=== PATIENT | female | born 1990 | race Caucasian/White ===

== ENCOUNTER 2019-10-27 21:13 | Inpatient (IN) | payer BC, SELFPAY ==
[2019-10-27] VITALS (7 sets, daily range): BP systolic 98–148; BP diastolic 68–104; PULSE 87–95; RESP 16; TEMP 36.9; O2SAT 85–100; BMI 65.8
--- NOTE | 2019-10-27 21:22 | PC.NURSE ---
pt was weaned off Non rebreather to 2l NC . tolerated well.
--- NOTE | 2019-10-27 21:46 | PC.NURSE ---
pt was weaned down to Room air. tolerated well.
--- NOTE | 2019-10-27 21:47 | ECG_ITS ---
APPROVED REPORT Exam: Resting ECG HR:105 bpm ECG Measurements Heart Rate 105 AXES NC 136 P 15 QRSd 88 QRS 19 QT 334 T 41 QTc 441 <Conclusion> Poor data quality, interpretation may be adversely affected Sinus tachycardia with premature supraventricular complexes with occasional premature ventricular complexes Anterior infarct, age undetermined Abnormal ECG Electronically signed by : Kwaku Barron, 10/29/2019 14:14:59
--- NOTE | 2019-10-27 21:47 | XR_ITS ---
PROCEDURE: XR CHEST AP CLINICAL HISTORY: allergic reaction Vomiting and diarrhea COMPARISON: No exams were available for comparison FINDINGS: The cardiomediastinal silhouette and pulmonary vascularity are within normal limits. The lungs are clear without infiltrates, suspicious nodules, or pleural effusions. No acute bony abnormalities. IMPRESSION: No acute findings. Dictated by: Zac Lacy MD 10/27/2019 23:20 Electronically signed by Zac Lacy MD in [place] 10/27/2019 23:20
--- NOTE | 2019-10-27 21:49 | CT_ITS ---
PROCEDURE: CT ABDOMEN PELVIS W CON CLINICAL INDICATION: vomiting/ diarrhea Nausea, vomiting, diarrhea COMPARISON: No exams were available for comparison TECHNIQUE: IV Contrast: 75ML OPTIRAY 350 Oral Contrast none Axial images obtained with sagittal and coronal reformats. All CT scans at the facility use one or more dose reduction, viz: automated exposure control, ma/kV adjustment per patient size (including targeted exams where dose is matched to indication, i.e. head), or iterative reconstruction technique. FINDINGS: LOWER THORAX: No acute finding ABDOMEN & PELVIS: The liver, gallbladder, adrenal glands, pancreas, and kidneys have an unremarkable appearance. There is mild splenomegaly at 15 cm. There are few small retroperitoneal lymph nodes. No dominant adenopathy. No evidence of appendicitis or diverticulitis. No pelvic mass or abnormal fluid collection. There is a Rodríguez catheter present in the urinary bladder. There is submucosal fat deposition within the colon. This may be seen as sequela from prior infectious/inflammatory process or increased body fat content. No acute bony findings. IMPRESSION: No acute abdominal or pelvic findings. Mild splenomegaly Dictated by: Zac Lacy MD 10/28/2019 08:47 Electronically signed by Zac Lacy MD in [place] 10/28/2019 08:47
[2019-10-27 21:55] LABS: Adenovirus F 40/41, stool Not Detected (NotDetected); Astrovirus Not Detected (NotDetected); Campylobacter Not Detected (NotDetected); Clostridium Difficile A/B, PCR Not Detected (NotDetected); Cryptosporidium Not Detected (NotDetected); Cyclospora Cayetanesis Not Detected (NotDetected); Entamoeba histolytica Not Detected (NotDetected); Enteroaggregative E coli Not Detected (NotDetected); Enteropathogenic E coli Not Detected (NotDetected); Enterotoxigenic E coli Not Detected (NotDetected); Giardia lamblia Not Detected (NotDetected); Norovirus Not Detected (NotDetected); Plesimonas Shigalloides, PCR Not Detected (NotDetected); Rotavirus A Not Detected (NotDetected); Salmonella, PCR Not Detected (NotDetected); Sapovirus Not Detected (NotDetected); Shiga-like toxin E coli Not Detected (NotDetected); Shigella Enterovasive E coli Not Detected (NotDetected); Vibrio Cholerae Not Detected (NotDetected); Vibrio, PCR Not Detected (NotDetected); Yersinia Entercolitica, PCR Not Detected (NotDetected)
[2019-10-27 21:55] LABS: Microscopic, Urine URINE MICROSCOPIC (MICROSCOPIC)
[2019-10-27 21:56] LABS: Basophils # 0.1 K/mm3 (0-0.2); Basophils % 0.5 % (0.1-2.0); Eosinophils # 0.1 K/mm3 (0.0-0.4); Eosinophils % 0.7 % (0.1-12.0); Hematocrit 35.7 % (37.0-47.0); Hemoglobin 11.7 g/dL (12.2-16.2); Lymphocytes # 5.2 K/mm3 (0.7-4.5); Lymphocytes % 28.1 % (10-50); Mean Corpuscular HGB Conc 32.8 g/dL (31.8-35.4); Mean Corpuscular Hemoglobin 26.9 pg (27.0-31.2); Mean Corpuscular Volume 82.1 fl (81-99); Mean Platelet Volume 7.4 fl (7.4-10.4); Monocytes # 0.7 K/mm3 (0.1-1.0); Monocytes % 3.5 % (1.7-9.3); Neutrophils # 12.4 K/mm3 (1.8-7.8); Neutrophils % 67.2 % (37.0-80.0); Platelet Count 575 K/mm3 (142-424); Red Blood Count 4.34 M/mm3 (4.20-5.40); Red Cell Distribution Width 15.2 % (11.5-17.5); White Blood Count 18.5 K/mm3 (4.8-10.8)
[2019-10-27 21:57] LABS: Appearance,Urine CLEAR (Clear); Bilirubin,Urine Negative (Negative); Blood, Urine Negative (Negative); Color,Urine YELLOW (Yellow); Glucose,Urine (UA) Negative (Negative); Ketones,Urine Negative (Negative); Leukocyte Esterase,Urine Negative (Negative); Nitrate,Urine Negative (Negative); Protein,Urine 1+ (Negative); Specific Gravity, Urine >= 1.030 (1.005-1.030); Urobilinogen,Urine 0.2 EU/dl (0.2)
[2019-10-27 21:58] LABS: Chloride 124 mmol/L (98-107)
[2019-10-27 21:59] LABS: Urine Pregnancy, HCG Qual. Negative (Negative)
[2019-10-27 21:59] LABS: MANUAL DIFFERENTIAL MANUAL DIFFERENTIAL (MANUAL DIFF); Sodium 145 mmol/L (136-145)
[2019-10-27 22:00] LABS: Lipase 28 U/L (23-300)
[2019-10-27 22:01] LABS: Alanine Aminotransferase 14 U/L (12-78); Aspartate Amino Transferase 22 U/L (14-36); Blood Urea Nitrogen 8 mg/dl (7-17); Creatinine Clearance Estimated 130 mL/min (50-200); Estimated Glomerular Filt Rate 145 ml/min (>60); GFR (African American) 175 ML/MIN (>60)
[2019-10-27 22:02] LABS: Albumin Level 1.8 g/dl (3.5-5.0); Albumin/Globulin Ratio 0.8 (1.1-1.8); Alkaline Phosphatase 54 U/L (38-126); Bilirubin,Total 0.2 mg/dl (0.2-1.3); Carbon Dioxide 12 mmol/L (22.0-30.0); Globulin 2.3 g/dL (1.3-3.2); Glucose 111 mg/dl (74-100); Total Protein,Serum 4.1 g/dl (6.3-8.2)
[2019-10-27 22:03] LABS: Bacteria,Urine Trace /lpf
--- NOTE | 2019-10-27 22:03 | PC.NURSE ---
pt placed on a bedside commode after stating she wasn't comfortable using the bathroom in bed anymore. pt was able to stand up and pivot to the BSC with stand by assist.
[2019-10-27 22:09] LABS: Benzodiazepines Screen,Urine Negative ng/ml (<200)
[2019-10-27 22:09] LABS: Lactic Acid 3.7 mmol/L (0.7-2.1)
[2019-10-27 22:10] LABS: Amphetamine/Metha Screen,Urine Negative ng/ml (<1000); Barbiturates Screen,Urine Negative ng/ml (<200)
[2019-10-27 22:11] LABS: Cannabinoid Screen,Urine Negative ng/ml (<50); Cocaine Screen,Urine Negative ng/ml (<300)
[2019-10-27 22:12] LABS: Methadone Screen,Urine Negative ng/ml (<300)
[2019-10-27 22:13] LABS: Opiate Screen,Urine Negative ng/ml (<300); Phencyclidine Screen,Urine Negative ng/ml (<25)
--- NOTE | 2019-10-27 22:13 | PC.NURSE ---
Pt arrived via EMS. on arrival pt was 100 on a non-rebreather mask with 15L 100% O2. per report ems was unable to assess a BP with their monitor, pt was alert and oriented x3 throughout their interaction and pt has been incontinent with her bowels in transport. This nurse and Bibi Jefferson assessed pt. pt was 85% on room air on initial assessment. pt place back on non-reabreather at this time. pt was cleaned up from BM. Rodríguez Catheter was placed and urine was collected and sent to lab.
[2019-10-27 22:27] LABS: Amylase < 30 U/L (30-110); Troponin I < 0.01 ng/ml (0.00-0.034)
[2019-10-27 22:49] LABS: Eosinophils % 2 % (0-3); Lymphocytes % 32 % (10-50); Monocytes % 2 % (2-9); Neutrophils % 64 % (42-76); Total Cells Counted 100
[2019-10-27 22:50] LABS: Platelet Estimate Normal; RBC Morphology Normal
--- NOTE | 2019-10-27 22:54 | HMH.EDALLER ---
ED Disposition Clinical Impression: Hypokalemia, Hypocalcemia, Hypomagnesemia, Elevated troponin Allergic reaction Qualifiers: Encounter type: initial encounter Qualified Code(s): T78.40XA - Allergy, unspecified, initial encounter Obesity Qualifiers: Obesity type: due to excess calories Obesity classification: adult class 3 (BMI >= 40) Serious obesity comorbidity presence: with serious comorbidity Body mass index: BMI 60.0-69.9 Qualified Code(s): E66.01 - Morbid (severe) obesity due to excess calories; Z68.44 - Body mass index (BMI) 60.0-69.9, adult Disposition: Admitted as Observation Condition on Discharge: Fair - Critical Care Critical Care Time: No Attestation: On 10/27/19, the high probability of a clinically significant, sudden or life threatening deterioration of the following system(s) required my full and direct attention, intervention and personal management. The time I documented below is in addition to time spent performing reported procedures but includes the following listed in this critical care notation. Medical Decision Making - Medical Records Medical records reviewed: Yes: I reviewed the patient's medical records. - Ugo Inquiry Pt receiving controlled substance: No Vital Signs: 10/27/19 21:12 10/27/19 21:13 10/27/19 21:21 Temperature 98.5 F Temperature Source Rectal Pulse Rate [Left Radial] 90 Respiratory Rate 16 Blood Pressure [Right Arm] 98/68 L Blood Pressure Mean [Right Arm] 78 Blood Pressure Source [Right Arm] Automatic Cuff Blood Pressure Position [Right Arm] Sitting 02 Sat by Pulse Oximetry 85 L 100 98 Oxygen Delivery Method Room Air Non-Rebreather Nasal Cannula Oxygen Flow Rate (LPM) 2 10/27/19 21:46 10/27/19 22:16 10/27/19 23:00 Temperature Temperature Source Pulse Rate [Left Radial] 95 H 91 H 90 Respiratory Rate 16 16 Blood Pressure [Right Arm] 140/104 H 130/74 137/74 Blood Pressure Mean [Right Arm] 116 92 95 Blood Pressure Source [Right Arm] Automatic Cuff Automatic Cuff Blood Pressure Position [Right Arm] Sitting Sitting Sitting 02 Sat by Pulse Oximetry 94 L 95 94 L Oxygen Delivery Method Room Air Room Air Room Air Oxygen Flow Rate (LPM) 10/27/19 23:30 10/28/19 00:00 Temperature Temperature Source Pulse Rate [Left Radial] 87 81 Respiratory Rate 16 16 Blood Pressure [Right Arm] 148/89 H 119/68 Blood Pressure Mean [Right Arm] 108 85 Blood Pressure Source [Right Arm] Automatic Cuff Automatic Cuff Blood Pressure Position [Right Arm] Sitting Sitting 02 Sat by Pulse Oximetry 95 96 Oxygen Delivery Method Room Air Room Air Oxygen Flow Rate (LPM) - Lab Data Lab results reviewed: Yes: I reviewed the patient's lab results. Lab Results 10/27/19 21:15: WBC 18.5 H, RBC 4.34, Hgb 11.7 L, Hct 35.7 L, MCV 82.1, MCH 26.9 L, MCHC 32.8, RDW 15.2, Plt Count 575 H, MPV 7.4, Neut % (Auto) 67.2, Lymph % (Auto) 28.1, [place] % (Auto) 3.5, Eos % (Auto) 0.7, Baso % (Auto) 0.5, Neut # (Auto) 12.4 H, Lymph # (Auto) 5.2 H, [place] # (Auto) 0.7, Eos # (Auto) 0.1, Baso # (Auto) 0.1, Total Counted 100, Neutrophils % (Manual) 64, Lymphocytes % (Manual) 32, Monocytes % (Manual) 2, Eosinophils % (Manual) 2, Platelet Estimate Normal, RBC Morphology Normal 10/27/19 21:15: Sodium 145, Potassium 2.0 L*, Chloride 124 H, Carbon Dioxide 12 L, Anion Gap 11.0, BUN 8, Creatinine 0.50 L, Estimated Creat Clear 130, Estimated GFR 145, Est GFR ( Amer) 175, Glucose 111 H, Calcium 5.0 L*, Total Bilirubin 0.2, AST 22, ALT 14, Alkaline Phosphatase 54, Troponin I < 0.01, Total Protein 4.1 L, Albumin 1.8 L, Globulin 2.3, Albumin/Globulin Ratio 0.8 L, Amylase < 30 L 10/27/19 21:15: Lactate 3.7 H 10/27/19 21:15: Lipase 28 10/27/19 21:35: Urine Color Yellow, Urine Appearance Clear, Urine pH 6.0, Ur Specific [place] >= 1.030, Urine Protein 1+, Urine Glucose (UA) Negative, Urine Ketones Negative, Urine Blood Negative, Urine Nitrate Negative, Urine Bilirubin Negative, Urine Urobilinogen 0.
--- NOTE | 2019-10-27 23:41 | PC.NURSE ---
pt alert and oriented x 3 and sitting up in bed.
[2019-10-28] VITALS (8 sets, daily range): BP systolic 113–141; BP diastolic 61–79; PULSE 61–85; RESP 15–20; TEMP 36.6–36.8; O2SAT 91–98; BMI 58.7; BMI 58.6
--- NOTE | 2019-10-28 00:01 | PC.NURSE ---
pt resting with eyes closed
--- NOTE | 2019-10-28 00:17 | PC.NURSE ---
spoke with bernard from pharmacy for calcium and potassium dosing. He recommended : 2gm of calcium gluconate and 3 runs of 10meq of potassium an hour then recheck the pot. level and continue to give more runs if needed.
[2019-10-28 01:03] LABS: Magnesium 1.1 mg/dl (1.6-2.3)
[2019-10-28 01:08] LABS: Reflex Lactic Add Lactic Reflex
[2019-10-28 01:19] LABS: Lactic Acid Follow Up (RFLX 1) 1.8 mmol/L (0.7-2.1)
[2019-10-28 01:21] LABS: T4 (Thyroxine) 4.8 ug/dl (5.53-11.0)
[2019-10-28 01:35] LABS: Thyroid Stimulating Hormone 1.42 uIU/mL (0.465-4.68)
[2019-10-28 01:41] LABS: Coronavirus 19 IgG Antibody Negative (Negative); Coronavirus 19 IgM Antibody Negative (Negative)
--- NOTE | 2019-10-28 01:51 | PC.NURSE ---
report called to CALEB Bolaños
--- NOTE | 2019-10-28 04:15 | PC.NURSE ---
PT IS A&OX4. LUNGS ARE CLEAR THROUGHOUT. 95% ON ROOM AIR. BS HYPERACTIVE IN ALL QUADS. PT REPORTS NO PAIN. NSR RHYTHM ON HEART MONITOR. PT RESTING COMFORTABLY. CARRILLO CATHETER DRAINING YELLOW CLEAR URINE. PT HAS A LARGE HEALING BURN ON ABD, PT STATES SHE BURNED IT ON STOVE WHILE COOKING. NO EDEMA NOTED IN EXTREMITIES KCL INFUSING @ 50MLS/HR. NS @ 100MLS/HR. PT AT THIS TIME HAS HAD NO MORE EPISODES OF VOMITING OR DIARRHEA WILL CONTINUE TO MONITOR
[2019-10-28 04:25] LABS: Chloride 110 mmol/L (98-107)
[2019-10-28 04:26] LABS: Basophils % 0.1 % (0.1-2.0); Eosinophils # 0.1 K/mm3 (0.0-0.4); Eosinophils % 0.4 % (0.1-12.0); Hematocrit 38.9 % (37.0-47.0); Hemoglobin 12.7 g/dL (12.2-16.2); Lymphocytes # 1.8 K/mm3 (0.7-4.5); Lymphocytes % 8.5 % (10-50); Mean Corpuscular HGB Conc 32.6 g/dL (31.8-35.4); Mean Corpuscular Hemoglobin 26.9 pg (27.0-31.2); Mean Corpuscular Volume 82.3 fl (81-99); Mean Platelet Volume 7.3 fl (7.4-10.4); Monocytes # 0.2 K/mm3 (0.1-1.0); Monocytes % 1.1 % (1.7-9.3); Neutrophils % 89.9 % (37.0-80.0); Platelet Count 441 K/mm3 (142-424); Potassium 4.3 mmoL/L (3.5-5.1); Red Blood Count 4.73 M/mm3 (4.20-5.40); Red Cell Distribution Width 15.3 % (11.5-17.5); Sodium 139 mmol/L (136-145); White Blood Count 21.1 K/mm3 (4.8-10.8)
[2019-10-28 04:28] LABS: Blood Urea Nitrogen 12 mg/dl (7-17); Creatinine Clearance Estimated 89 mL/min (50-200); Estimated Glomerular Filt Rate 98 ml/min (>60); GFR (African American) 119 ML/MIN (>60)
[2019-10-28 04:29] LABS: Anion Gap 10.3 mEq/L (5-15); Carbon Dioxide 23 mmol/L (22.0-30.0); Chol/HDL Ratio 6.6 (1-3.5); Cholesterol 204 mg/dl (140-200); Glucose 160 mg/dl (74-100); HDL Cholesterol 31 mg/dl (40-60); Phosphorous 3.3 mg/dl (2.5-4.5); Triglycerides 222 mg/dl (30-150); VLDL Cholesterol 44 mg/dL (0-40)
[2019-10-28 04:40] LABS: Direct LDL Cholesterol 139.49 mg/dL (100-129)
[2019-10-28 04:41] LABS: Troponin I 0.11 ng/ml (0.00-0.034)
[2019-10-28 05:11] LABS: Calcium 8.9 mg/dl (8.4-10.2)
--- NOTE | 2019-10-28 05:41 | PC.NURSE ---
PATIENT WEIGHED ON STANDING SCALE IN HALLWAY . NO NUMBER ON SCALE TO CHART
--- NOTE | 2019-10-28 07:34 | HMH.PHAINT ---
MED REC- PATIENT TAKES NO HOME MEDICATIONS -AMANDA LINARESD
--- NOTE | 2019-10-28 07:34 | HMH.PHAVTE ---
[facility] Pharmacy VTE Monitoring - Patient Demographics Admission date: 10/27/19 Report Date: 10/28/19 Time: 07:34 Allergies/Adverse Reactions: Patient Allergies amoxicillin [AMOXICILLIN] Allergy (Intermediate, Verified 10/27/19 21:56) I-HIVES latex Allergy (Intermediate, Verified 10/28/19 03:58) Hives penicillin G [PENICILLIN G] Allergy (Intermediate, Verified 10/27/19 21:56) I-HIVES Sulfa (Sulfonamide Antibiotics) [SULFA (SULFONAMIDE ANTIBIOTICS)] Allergy (Intermediate, Verified 10/27/19 21:56) I-HIVES Height: 1.57 m Weight: 144.412 kg Patient Problems: Current Active Problems Allergic reaction (Acute) Obesity (Acute) Hypokalemia (Acute) Hypocalcemia (Acute) Hypomagnesemia (Acute) Elevated troponin (Acute) - VTE Risk Labs: VTE Related Lab Results Hgb 12.7 g/dL (12.2-16.2) 10/28/19 04:15 Hct 38.9 % (37.0-47.0) 10/28/19 04:15 Plt Count 441 K/mm3 (142-424) H 10/28/19 04:15 BUN 12 mg/dl (7-17) D 10/28/19 04:15 Creatinine 0.70 mg/dl (0.52-1.04) D 10/28/19 04:15 Estimated Creat Clear 89 mL/min (50-200) 10/28/19 04:15 VTE Score: 1 - Prophylaxis VTE Prophylaxis Ordered?: Yes Types of VTE Prophylaxis: TEDS Knee High Location of Applied Device: Bilateral Lower Extremeties - VTE Diagnosis Confirmed Treatment or plan recommended: Continue Current Treatment
--- NOTE | 2019-10-28 07:45 | ECG_ITS ---
APPROVED REPORT Exam: Resting ECG HR:68 bpm ECG Measurements Heart Rate 68 AXES WA 170 P 32 QRSd 104 QRS 39 QT 416 T 41 QTc 442 <Conclusion> Normal sinus rhythm with sinus arrhythmia Incomplete RBBB Otherwise a normal ECG Electronically signed by : Partha Contreras, 10/28/2019 17:12:13
--- NOTE | 2019-10-28 07:51 | HMH.CNCARD ---
History of Present Illness Consult date: 10/28/19 Requesting physician: Scott Cruz Chief complaint: weakness, vomiting, incontinence, elevated troponin Additional Medical History:: 1. Tobacco use, 1 pack/day since age 14 2. Obesity 3. Degenerative disc disease 4. Chronic knee discomfort due to history of trauma 5. Family history of diabetes and coronary artery disease 6. History of ADD 7. History of manic depression 8. Systemic inflammatory response syndrome, 10/2019 A. Mild elevation of troponins with preliminary echocardiogram showing normal ejection fraction without pericardial effusion. 9. Reported allergy to penicillin, sulfa, latex and amoxicillin with history of hives as the reaction History of present illness: 29-year-old white female reports eating [place] food approximately 30 minutes prior to onset of severe flushing sensation along with weakness, lightheadedness, abdominal pain, loss of bowel control and inability to walk. Friends were able to help the patient until patient could be transported to the emergency room for further evaluation. ER evaluation showed elevated white count with hypokalemia and hypocalcemia. Chest x-ray showed no acute findings, abdominal CT results are pending, EKG showed sinus tachycardia with acute ST segment changes. There was evidence of a poor R wave progression anteriorly but no acute ST segment changes. Initial troponin was normal with follow-up troponins mildly elevated at 0.1 and 0.11. Preliminary echocardiogram this morning shows preserved ejection fraction with no significant valve disease and no evidence of pericardial effusion. [facility] History Medical History: Reports:: MRSA (left arm abscess) Denies:: Cancer, Diabetes Mellitus Type 1, Diabetes Mellitus Type 2 *Have you ever received a pneumonia vaccine?: No *Have you received a flu vaccine this season?: Yes - *Social History Educational Level: Attended [employer] Smoking Status: Current every day smoker # Packs/Day (cigarettes): 1 Alcohol Intake: current Alcohol Intake Frequency:: holidays/special occasions only Substance Use Type: marijuana Last Used Substance: unknown *Occupational Status:: unemployed Household Members: spouse, friend(s) *Travel in the last 8 weeks: None Family Hx:: Asthma, Diabetes, Heart Attack, Hyperlipidemia, Hypertension Meds Home Medications Medication Instructions Recorded Confirmed Type No Known Home Medications 10/27/19 10/27/19 History Allergies Allergy/AdvReac Type Severity Reaction Status Date / Time amoxicillin [AMOXICILLIN] Allergy Intermediate I-HIVES Verified 10/27/19 21:56 latex Allergy Intermediate Hives Verified 10/28/19 03:58 penicillin G [PENICILLIN G] Allergy Intermediate I-HIVES Verified 10/27/19 21:56 Sulfa (Sulfonamide Allergy Intermediate I-HIVES Verified 10/27/19 21:56 Antibiotics) [SULFA (SULFONAMIDE ANTIBIOTICS)] Review of Systems - Review of Systems Review of systems:: pertinent systems reviewed and negative unless documented below - *Cardiovascular Reports shortness of breath with activity, Denies chest pain - *Respiratory Denies cough, Denies shortness of breath - *Gastrointestinal Reports incontinent of stools, Reports nausea, Reports vomiting - *Genitourinary Denies blood in urine - *Musculoskeletal Reports joint pain, Reports back pain - *Neurologic Denies seizure-like activity, Denies headache(s), Denies seizure-like activity Exam Vital signs and Labs for Last 24 Hours: Temp Pulse Resp BP Pulse Ox 97.9 F 82 18 139/78 93 L 10/28/19 04:00 10/28/19 04:00 10/28/19 04:00 10/28/19 04:00 10/28/19 04:00 Laboratory Results - last 24 hr 10/27/19 21:15: WBC 18.5 H, RBC 4.34, Hgb 11.7 L, Hct 35.7 L, MCV 82.1, MCH 26.9 L, MCHC 32.8, RDW 15.2, Plt Count 575 H, MPV 7.4, Neut % (Auto) 67.2, Lymph % (Auto) 28.1, [place] % (Auto) 3.5, Eos % (Auto) 0.7, Baso % (Auto) 0.5, Neut # (Auto) 12.4 H, Lymph # (Auto)
--- NOTE | 2019-10-28 08:00 | CA_ITS ---
APPROVED REPORT EXAM: Comprehensive 2D, Doppler, and color-flow Echocardiogram Power Saw Mechanic: Yodit Ramos RDCS Ht: 5 ft 2 in Wt: 360lbs BSA: 2.45 BP: 130/74 mmHg Indications: MURMUR 2D Dimensions LVOT 1.79 cm (M/F) 1.5-2.5 M-Mode Dimensions RVDd 2.25 cm (0.9-2.6) LVDd 5.91 cm (3.5-5.7) LVDs 4.18 cm (3.5-5.7) IVSd 1.00 cm (0.6-1.1) PWd 0.68 cm (0.6-1.1) EF (Teich) 55.30% FS 29.30% EDV (Teich) 173.90 mL ESV (Teich) 77.70 mL LV Diastology E/A Ratio 1.45 Aortic Valve LVOT Max 109.00 (70-110 cm/s) LVOT VTI 23.82 cm Mitral Valve MV A Velocity 56.00 (40-130 cm/s) Left Ventricle Left atrium is normal size, left ventricle is normal size, there is no concentric left ventricular hypertrophy, visually estimated ejection fraction 55% with no regional wall motion abnormality. Diastolic parameters are within normal range. Right Ventricle Right atrium and left ventricle are normal size and contractility. Aortic Valve Aortic valve is grossly normal, there is no aortic stenosis or aortic insufficiency. Mitral Valve Mitral valve has mild mitral annular calcification involving the posterior mitral leaflet, there is mild redundancy of the posterior mitral leaflet seen, there is no mitral stenosis or mitral regurgitation. Tricuspid Valve Tricuspid valve is grossly normal, there is trace tricuspid regurgitation. Pulmonic Valve Pulmonic valve is poorly visualized. Great Vessels Aortic root is normal size. Pericardium No significant pericardial effusion noted. Conclusion 1. Normal left ventricular size, preserved left ventricular systolic function, visually estimated ejection fraction 55% with no regional wall motion abnormality, diastolic parameters are within normal range. 2. Mild mitral annular calcification involving the posterior mitral leaflet, there is no mitral stenosis or mitral regurgitation. 3. No significant pericardial effusion noted. Electronically signed by : Liam Isaac, 10/28/2019 09:55:08
--- NOTE | 2019-10-28 08:32 | HMH.HPDC ---
General - General Admission date:: 10/28/19 Discharge date: 10/28/19 *Admission Date: 10/27/19 *Chief complaint: allergic reaction *History of present illness: 29-year-old female reports eating [place] food approximately 30 minutes prior to onset of severe flushing sensation along with weakness, lightheadedness, abdominal pain, loss of bowel control and inability to walk. Friends were able to help the patient until patient could be transported to the emergency room for further evaluation. ER evaluation showed elevated white count with hypokalemia and hypocalcemia. Chest x-ray showed no acute findings, abdominal CT results are pending, EKG showed sinus tachycardia with acute ST segment changes. There was evidence of a poor R wave progression anteriorly but no acute ST segment changes. Initial troponin was normal with follow-up troponins mildly elevated at 0.1 and 0.11. Preliminary echocardiogram this morning shows preserved ejection fraction with no significant valve disease and no evidence of pericardial effusion.-per [facility] History I have reviewed the patient's past medical history: Yes Medical History: Reports:: MRSA (left arm abscess) Denies:: Cancer, Diabetes Mellitus Type 1, Diabetes Mellitus Type 2 *Have you ever received a pneumonia vaccine?: No *Have you received a flu vaccine this season?: Yes - *Social History Educational Level: Attended [employer] Smoking Status: Current every day smoker # Packs/Day (cigarettes): 1 Alcohol Intake: current Alcohol Intake Frequency:: holidays/special occasions only Substance Use Type: marijuana Last Used Substance: unknown *Occupational Status:: unemployed Household Members: spouse, friend(s) *Travel in the last 8 weeks: None Family Hx:: Asthma, Diabetes, Heart Attack, Hyperlipidemia, Hypertension Review of Systems - Review of Systems Review of systems:: pertinent systems reviewed and negative unless documented below - Constitutional Reports weakness, Denies fever(s) - Eyes Denies pain - ENT Reports throat swelling, Denies sore throat - *Cardiovascular Denies chest pain at rest - *Respiratory Reports shortness of breath, Denies chest congestion - *Gastrointestinal Reports nausea, Reports vomiting, Denies bloating - *Genitourinary Denies urinary urgency - *Musculoskeletal Denies body aches - Integumentary/Breasts Denies rash - *Neurologic Reports weakness, Denies seizure-like activity, Denies headache(s), Denies seizure-like activity - Psychiatric Denies anxiety - Endocrine Denies increased urination - Hematologic/Lymphatic Denies easy bruising - Allergic/Immunologic Reports GI upset with certain foods, Reports throat swelling, Reports hives Exam Vital signs and Labs for Last 24 Hours: Temp Pulse Resp BP Pulse Ox 97.8 F 68 18 141/79 H 91 L 10/28/19 08:00 10/28/19 08:00 10/28/19 08:00 10/28/19 08:00 10/28/19 08:00 Laboratory Results - last 24 hr 10/27/19 21:15: WBC 18.5 H, RBC 4.34, Hgb 11.7 L, Hct 35.7 L, MCV 82.1, MCH 26.9 L, MCHC 32.8, RDW 15.2, Plt Count 575 H, MPV 7.4, Neut % (Auto) 67.2, Lymph % (Auto) 28.1, [place] % (Auto) 3.5, Eos % (Auto) 0.7, Baso % (Auto) 0.5, Neut # (Auto) 12.4 H, Lymph # (Auto) 5.2 H, [place] # (Auto) 0.7, Eos # (Auto) 0.1, Baso # (Auto) 0.1, Total Counted 100, Neutrophils % (Manual) 64, Lymphocytes % (Manual) 32, Monocytes % (Manual) 2, Eosinophils % (Manual) 2, Platelet Estimate Normal, RBC Morphology Normal 10/27/19 21:15: Sodium 145, Potassium 2.0 L*, Chloride 124 H, Carbon Dioxide 12 L, Anion Gap 11.0, BUN 8, Creatinine 0.50 L, Estimated Creat Clear 130, Estimated GFR 145, Est GFR ( Amer) 175, Glucose 111 H, Calcium 5.0 L*, Total Bilirubin 0.2, AST 22, ALT 14, Alkaline Phosphatase 54, Troponin I < 0.01, Total Protein 4.1 L, Albumin 1.8 L, Globulin 2.3, Albumin/Globulin Ratio 0.8 L, Amylase < 30 L 10/27/19 21:15: Lactate 3.7 H 10/27/19 21:15: Lipase 28 10/27/19 21:35: Urine Color Yellow, U
[2019-11-23 14:47] LABS: POC Glucose,Bedside 141 (70-110)
== END 2019-10-28 10:45 | disposition home or self-care (01) | DRG 916 ==
LOC: ER 22:23 → 2ND 10-28 01:40
PROVIDERS: Admitting Provider Emergency Medicine; Emergency Provider Emergency Medicine; PCP Internal Medicine Adolescent Medicine; Visit Provider Emergency Medicine
DX: T78.40XA Allergy, unspecified, initial encounter (principal); R65.10 Systemic inflammatory response syndrome (SIRS) of non-infectious origin without acute organ dysfunction; Z68.43 Body mass index [BMI] 50.0-59.9, adult; E83.51 Hypocalcemia; E87.6 Hypokalemia; E83.42 Hypomagnesemia; Z72.0 Tobacco use; E66.01 Morbid (severe) obesity due to excess calories
CPT/HCPCS: 36415; 71045; 74177; 80048; 80053; 80061; 80305; 81001; 81025; 82150; 82962; 83605; 83690; 83735; 84100; 84436; 84443; 84484; 85007; 85025; 86328; 87040; 87507; 93005; 93306; 96365; 96366; 96367; 96375; 99285; J2405; Q9967